=== PATIENT | male | born 1945 | race Caucasian/White ===

== ENCOUNTER 2020-10-12 19:38 | Emergency (ER) | payer MEDICARE, MEDICAID ==
[~2020-10-12] VITALS: Ht 182.9 cm; Wt 87.0 kg
[2020-10-12] MEDS ORDERED: ACETAMINOPHEN 325MG TABLET PO ONE (21:00)
[2020-10-12] MEDS ORDERED: ONDA4TAB11 PO (21:01)
[2020-10-12] MEDS ORDERED: IBUP-2029 MT (21:01)
[2020-10-12] MEDS ORDERED: IBUPROFEN 600MG TABLET PO ONE (22:00)
[2020-10-12 23:17] VITALS: BP 122/77
== END 2020-10-12 23:17 | disposition home or self-care (01) ==
LOC: ER 19:38
DX: M54.2 Cervicalgia (principal); R51.9 Headache, unspecified; E78.00 Pure hypercholesterolemia, unspecified
CPT/HCPCS: 99285